=== PATIENT | male | born 2000 | race Caucasian/White ===

== ENCOUNTER 2020-03-31 01:25 | Emergency (ER) | payer OTHER ==
[~2020-03-31] VITALS: Ht 167.6 cm; Wt 64.6 kg
[2020-03-31] MEDS ORDERED: ALBUTEROL/IPRATROPIUM 2.5MG/0.5MG, 3 ML NPPB ONE (02:00)
[2020-03-31] MEDS ORDERED: ALBUTEROL/IPRATROPIUM 2.5MG/0.5MG, 3 ML ONE (02:15)
[2020-03-31 02:19] VITALS: BP 126/68
== END 2020-03-31 03:09 | disposition home or self-care (01) ==
LOC: ED 02:01
DX: J45.41 Moderate persistent asthma with (acute) exacerbation (principal); R05 Cough; R07.89 Other chest pain; R06.02 Shortness of breath
CPT/HCPCS: 71046; 93005; 94640; 99283; J7512